=== PATIENT | female | born 2000 | race African-American/Black ===

== ENCOUNTER 2020-12-01 07:26 | Inpatient (IN) ==
[2020-12-01] MEDS ORDERED: LACTATED RINGERS 500 ML IV PRN (07:32)
[2020-12-01] MEDS ORDERED: ONDANSETRON 4 MG/2 ML VIAL IV PRN ×2 (07:32→12:49)
[2020-12-01] MEDS ORDERED: MEPERIDINE 50 MG/1 ML VIAL IV PRN (07:54)
[2020-12-01] MEDS ORDERED: BUTORPHANOL 2 MG/ML VIAL IV PRN (07:54)
[2020-12-01] MEDS ORDERED: OXYTOCIN/LR 20 UNIT/1,000 ML BAG IV SCH (08:00)
[2020-12-01] MEDS ORDERED: LACTATED RINGERS 1,000 ML IV SCH (08:00)
[2020-12-01] MEDS ORDERED: ACETAMINOPHEN 325 MG TABLET PO PRN ×2 (08:02→12:49)
[2020-12-01 08:35] LABS: Basophils # 0.1 10*3/uL (0.0-0.2); Basophils % 0.6 % (0.0-0.8); Eosinophils # 0.2 10*3/uL (0.0-0.87); Eosinophils % 1.5 % (0.00-10.9); Hematocrit 33.2 VOL% (35.7-47.0); Hemoglobin 10.2 GM/DL (12.0-16.0); Immature Granulocytes % 0.5 %; Immature Granulocytes Absolute 0.06 #; Lymphocytes # 1.9 10*3/uL (1.4-4.0); Lymphocytes % 16.1 % (21.3-54.2); Mean Corpuscular HGB Conc 30.7 GM/DL (32-36); Mean Corpuscular Volume 70.3 FL (87-102); Mean Platelet Volume 12.1 FL (9.6-12.0); Monocytes % 9.3 % (1.7-12.7); Platelet Count 300 T/CUMM (130-400); Red Blood Count 4.72 MC/CUMM (3.8-5.5); Red Cell Distribution Width 16.2 % (9.3-17.3)
[2020-12-01 08:54] LABS: Albumin 2.9 G/DL (3.4-5.0); Bilirubin,Total 0.6 MG/DL (0.20-1.00); Osmolality,Calculated 269.8 MOS/KG (273-304); Potassium 3.8 MMOL/L (3.5-5.1); Total Protein 7.5 G/DL (6.4-8.2)
[2020-12-01] MEDS ORDERED: CITRIC ACID/SODIUM CITRATE 30 ML UDCUP ONE (09:34)
[2020-12-01] MEDS ORDERED: FAMOTIDINE 20 MG/2 ML VIAL IV ONE ×2 (09:34→09:36)
[2020-12-01] MEDS ORDERED: CITRIC ACID/SODIUM CITRATE 30 ML UDCUP PO ONE (09:36)
[2020-12-01] MEDS ORDERED: LACTATED RINGERS 1,000 ML IV ONE (09:36)
[2020-12-01] MEDS ORDERED: ePHEDrine 50 MG/ML VIAL IV PRN (09:37)
[2020-12-01] MEDS ORDERED: PROMETHAZINE 25 MG/1 ML VIAL IM ONE (09:37)
[2020-12-01] MEDS ORDERED: NALOXONE 0.4 MG/ML VIAL IV PRN (09:37)
[2020-12-01] MEDS ORDERED: diphenhydrAMINE 50 MG/1 ML VIAL IV PRN (09:37)
[2020-12-01] MEDS ORDERED: LACTATED RINGERS 250 ML IV PRN (09:37)
[2020-12-01] MEDS ORDERED: fentaNYL 2 MCG/ROPIV 0.2% EPID 100 ML EPIDURAL SCH (10:00)
[2020-12-01 10:44] LABS: Bilirubin,Urine Negative (Negative); Blood, Urine Negative (Negative); Glucose,Urine (UA) Negative (Negative); Ketones,Urine 20 mg/dL (Negative); Mucus,Urine Occasional /LPF (Occasional); Nitrite,Urine Negative (Negative); Protein,Urine Negative; RBC,Urine 3 /HPF (0-4); Squamous Epithelial Cell,Urine Occasional /HPF (0-10); Urine Appearance CLEAR (Clear); Urine Color Yellow (Yellow); Urine Specific Gravity 1.012 (1.001-1.035)
[2020-12-01] MEDS ORDERED: OXYTOCIN/LR 20 UNIT/1,000 ML BAG IV ONE ×2 (12:05→12:49)
[2020-12-01] MEDS ORDERED: miSOPROStoL 200 MCG TABLET ONE (12:05)
[2020-12-01] MEDS ORDERED: CARBOPROST TROMETHAMINE 250 MCG/ML AMP IM ONE (12:05)
[2020-12-01] MEDS ORDERED: TRANEXAMIC ACID 1,000 MG/10 ML VIAL ONE (12:05)
[2020-12-01] MEDS ORDERED: METHYLERGONOVINE 0.2 MG/1 ML AMP ONE (12:05)
[2020-12-01] MEDS ORDERED: SODIUM CHLORIDE 0.9% 0 ML IV ONE (12:06)
[2020-12-01 12:44] LABS: Cord Arterial Blood HCO3 23.3 MMOL/L
[2020-12-01 12:46] LABS: Cord Venous Blood HCO3 24.6 MMOL/L; Cord Venous Blood PCO2 33.8 MMHG; Cord Venous Blood PO2 38.4 MMHG
[2020-12-01] MEDS ORDERED: WITCH HAZEL PADS 100/JAR TOP PRN (12:49)
[2020-12-01] MEDS ORDERED: BISACODYL 10 MG SUPP RECTAL PRN (12:49)
[2020-12-01] MEDS ORDERED: BENZOCAINE 20%/MENTHOL 0.5% SPRAY 56 GM CAN TOP PRN (12:49)
[2020-12-01] MEDS ORDERED: DIPH/TET/ACEL PERT BOOSTER VACCINE 0.5 ML VIAL IM ONE (12:49)
[2020-12-01] MEDS ORDERED: LANOLIN 50% CREAM 0.3 OZ TUBE TOP PRN (12:49)
[2020-12-01] MEDS ORDERED: RHO(D) IMMUNE GLOBULIN 300 MCG SYRINGE IM ONE (12:49)
[2020-12-01] MEDS ORDERED: oxyCODONE/ACETAMINOPHEN 5-325 MG TABLET PO PRN ×2 (12:49)
[2020-12-01] MEDS ORDERED: MEASLES/MUMPS/RUBELLA VACCINE 0.5 ML VIAL SUBCUT ONE (12:49)
[2020-12-01] MEDS ORDERED: HYDROCORTISONE 2.5% RECTAL CREAM 30 GM TUBE TOP PRN (12:49)
[2020-12-01] MEDS: IBUPROFEN 800 MG TABLET PO PRN (16:13)
[2020-12-01] MEDS: DOCUSATE SODIUM 100 MG CAPSULE PO SCH (21:18)
[2020-12-02] MEDS: oxyCODONE/ACETAMINOPHEN 5-325 MG TABLET PO PRN ×2 (00:40→14:01)
[2020-12-02] MEDS: IBUPROFEN 800 MG TABLET PO PRN ×2 (03:45→19:38)
[2020-12-02 05:48] LABS: Basophils # 0.1 10*3/uL (0.0-0.2); Basophils % 0.6 % (0.0-0.8); Eosinophils # 0.3 10*3/uL (0.0-0.87); Hematocrit 24.9 VOL% (35.7-47.0); Hemoglobin 7.9 GM/DL (12.0-16.0); Immature Granulocytes % 0.5 %; Immature Granulocytes Absolute 0.06 #; Lymphocytes % 14.8 % (21.3-54.2); Mean Corpuscular HGB Conc 31.7 GM/DL (32-36); Mean Corpuscular Volume 70.5 FL (87-102); Mean Platelet Volume 11.4 FL (9.6-12.0); Monocytes % 8.7 % (1.7-12.7); Neutrophils % 73.4 % (38.7-73.9); Platelet Count 223 T/CUMM (130-400); Red Blood Count 3.53 MC/CUMM (3.8-5.5); Red Cell Distribution Width 15.9 % (9.3-17.3); White Blood Count 13.2 T/CUMM (4-12)
[2020-12-02] MEDS: DOCUSATE SODIUM 100 MG CAPSULE PO SCH ×3 (09:46→20:38)
[2020-12-02] MEDS: FERROUS SULFATE 325 MG TABLET PO SCH (20:38)
[2020-12-03] MEDS: IBUPROFEN 800 MG TABLET PO PRN ×2 (02:55→11:57)
[2020-12-03] MEDS: FERROUS SULFATE 325 MG TABLET PO SCH (08:26)
[2020-12-03] MEDS: DOCUSATE SODIUM 100 MG CAPSULE PO SCH (08:26)
[2020-12-03 11:32] VITALS: BP 101/57
== END 2020-12-03 14:45 | disposition home or self-care (01) | DRG 560 ==
LOC: N.LD 07:26 → N.OB 16:25
PROVIDERS: ADMIT Obstetrics & Gynecology; ATTEND Obstetrics & Gynecology